=== PATIENT | male | born 1965 ===

== ENCOUNTER → 2021-12-21 | Day surgery (SDC) | payer OTHER ==
[~2021-12-21] MED LIST: AVALIDE 300-121 EACH PO; JANUMET XR 50-1 EAC1 PO; NORVASC10 MG PO
== END | disposition home or self-care (01) ==
LOC: ADM 12-17 10:00 → CIR.AMB 06:15
PROVIDERS: ATTEND Orthopaedic Surgery Hand Surgery
DX: G56.02 Carpal tunnel syndrome, left upper limb (principal); I10 Essential (primary) hypertension; E78.5 Hyperlipidemia, unspecified; Z86.16 Personal history of COVID-19; E66.9 Obesity, unspecified